=== PATIENT | female | born 1960 | race Caucasian/White ===

== ENCOUNTER 2021-07-18 07:25 | Day surgery (SDC) | payer SELFPAY ==
[~2021-07-18 07:25] MED LIST: Lactated Ringers 1,000 ML IV SCH
[2021-07-18] MEDS ORDERED: fentaNYL 100 MCG/2 ML SDV ONE (08:26)
[2021-07-18] MEDS ORDERED: Midazolam 1 MG/ML 2 ML SDV ONE (08:26)
[2021-07-18] MEDS ORDERED: Propofol 200 MG/20 ML SDV ONE (08:26)
== END 2021-07-18 10:35 | disposition home or self-care (01) ==
LOC: JP.SDS 07:25
PROVIDERS: ATTEND Family Medicine
DX: K29.50 Unspecified chronic gastritis without bleeding (principal); K31.7 Polyp of stomach and duodenum; M06.9 Rheumatoid arthritis, unspecified; M81.0 Age-related osteoporosis without current pathological fracture
CPT/HCPCS: 87081; 88305; J2250; J2704; J3010; J7120